=== PATIENT | male | born 1945 ===

== ENCOUNTER 2023-01-30 08:02 | Day surgery (SDC) | payer OTHER ==
[2023-01-30 08:08] LABS: Absolute Lymphocytes (CBC) 0.8 K/uL (0.7-4.9); Hematocrit 39.2 % (39.6-49.0); Lymphocytes % 13.7 % (15.3-44.8); MCV 79.5 fL (80-100); MPV 7.8 fL (7.6-11.3); RBC Red Blood Cell Count 4.92 M/uL (4.33-5.43)
--- NOTE | 2023-01-30 08:20 | RAD REPORT ---
EXAM DESCRIPTION: RAD - Chest Pa And Lat (2 Views) - 01/30/2023 8:02 am CLINICAL HISTORY: Pre op pending hernia repair Chest pain. COMPARISON: No comparisons FINDINGS: The lungs are clear. The heart is upper limit of normal in size. No displaced fractures. IMPRESSION: No acute or concerning finding suspected. The USPSTF recommends annual screening for lung cancer with low-dose CT (LDCT) in adults aged 50 to 8 0 years who have a 20 pack-year smoking history and currently smoke or have quit within the past 15 y ears.
[2023-01-30 08:26] LABS: Potassium 3.8 mEq/L (3.5-5.1)
[2023-01-30] MEDS ORDERED: Ringers Lactate 1,000 ML IV ONE (08:47)
[2023-01-30] MEDS ORDERED: CEFAZOLIN SODIUM 1 GM/VIAL ONE (08:47)
[2023-01-30] MEDS ORDERED: FENTANYL CITR 100 MCG/2 ML ONE (09:08)
[2023-01-30] MEDS ORDERED: propofoL 200 MG/20 ML VIAL IV ONE (09:08)
[2023-01-30] MEDS ORDERED: LIDOCAINE 2% MPF 5 ML VIAL ONE ×2 (09:08→09:12)
[2023-01-30] MEDS ORDERED: ONDANSETRON 4 MG/2 ML VIAL ONE (09:09)
[2023-01-30] MEDS ORDERED: MIDAZOLAM HCL 2 MG/2 ML INJ ONE (09:09)
[2023-01-30] MEDS ORDERED: ROCURONIUM 50 MG/5 ML VIAL IV ONE (09:10)
[2023-01-30] MEDS ORDERED: GLYCOPYRROLATE 0.2 MG/ML SYR ONE ×2 (09:11→09:12)
[2023-01-30] MEDS ORDERED: NEOSTIGMINE 1 MG/ML -10 ML VIAL ONE (09:12)
[2023-01-30] MEDS ORDERED: EPHEDRINE SULF 50 MG/ML VIAL ONE (09:29)
--- NOTE | 2023-01-30 10:03 | P.BOP ---
Preoperative diagnosis: incarcerated tender right inguinal hernia Postoperative diagnosis: same Primary procedure: Laparoscopic repair of incarcerated tender right inguinal hernia with mesh Laboratory Tech: MARIA GUADALUPE LEE (COMMUNICATIONS INTERN) Estimated blood loss: <10cc Specimen: none Findings: RIH Anesthesia: General Complications: None Implants: medium 3D mesh Transferred to: Recovery Room Condition: Good
[2023-01-30 10:18] VITALS: O2SAT 100
[2023-01-30 12:40] VITALS: BP 145/85; TEMP 96.7
== END 2023-01-30 11:38 | disposition home or self-care (01) ==
LOC: OR 08:02
PROVIDERS: ATTEND Surgery
PROC: 0YU54JZ Supplement Right Inguinal Region with Synthetic Substitute, Percutaneous Endoscopic Approach (ICD-10-PCS; principal; 2023-01-30 09:15)
DX: K40.30 Unilateral inguinal hernia, with obstruction, without gangrene, not specified as recurrent (principal)
CPT/HCPCS: 85025; 80048; 36415; 71046; 49650; J2704; J2710; J2001; J2250; J3010; J2405; J7120; J0690